=== PATIENT | female | born 1985 | race Hispanic/Latino ===

== ENCOUNTER 2021-06-06 17:25 | Emergency (ER) | payer OTHER ==
[2021-06-06] MEDS ORDERED: Ketorolac Tromethamine 30 MG/ML VIAL ONE (18:36)
== END 2021-06-06 18:50 | disposition home or self-care (01) ==
LOC: CSHERS 17:25
DX: M54.50 Low back pain, unspecified (principal)
CPT/HCPCS: 96372; 99283; J1885